=== PATIENT | female | born 1960 | race Caucasian/White ===

== ENCOUNTER 2016-12-15 13:30 | Inpatient (IN) | payer OTHER ==
[~2016-12-15] VITALS: Ht 157.5 cm; Wt 93.3 kg
--- NOTE | ~2016-12-15 | EKG ---
[address] [address] ELECTROCARDIOGRAM REPORT Name: AYLEEN VALENZUELA Gino Room #: 207-P ADM IN M.R.#: [id number] Admission: 12/15/16 Attend Phys: Maged Snyder MD Discharge: Date of : 64 Report #: [id number] THIS REPORT FOR: //name// [facility] ED Test Date: 2016-12-15 Test Time: 13:37:51 Pat Name: AYLEEN VALENZUELA Department: Room: 207 Gender: F Night Time Nanny: KKODSHASHANK : 1960 Requested By: Daisy Dahl Order Number: [id number] MD: Akhil Irizarry Measurements Intervals [place] Rate: 100 P: 46 MA: 128 QRS: -31 QRSD: 91 T: -50 QT: 356 QTc: 460 Interpretive Statements Sinus tachycardia Left axis deviation Nonspecific T abnormalities No previous ECGs available for comparison Electronically Signed On 12-16-2016 8:31:00 CDT by Akhil Irizarry [email or web address] <ELECTRONICALLY SIGNED> By: Akhil Irizarry MD, MERGED WITH [facility] 12/16/16 0831 36 36 Akhil Irizarry MD, FAC /EPI
[~2016-12-15 13:30] MED LIST: ASPIR 8181 MG PO; CELEXA20 MG PO; CLONAZEPAM 0.50.5 M1 PO; CLONAZEPAM 1 MG1 M1 PO; COLACE100 MG PO; COMPLETE MULTI1 EACH PO; IBUPROFEN 800800 M1 PO; INVOKANA100 MG PO; JANUMET 50-1,01 EACH PO; KLOR-CON 1010 MEQ PO; LANTUS100 UNIT/M SUBQ; LASIX 20 MG TAB20 MG PO; LEVOTHYROXIN0.025 MG PO; LIDODERM 5%1 PATC1 TRANSDERM; LIORESAL 10 MG10 MG PO; LIPITOR 20 MG T20 M1 PO; LISINOPRIL10 MG PO; NEXIUM40 MG PO; OLANZAPINE10 MG PO; OXYBUTYNIN 5 MG5 M2 PO; OXYCODONE HCL15 MG PO; PROAIR HFA8.5 GM INH; SENNA8.6 MG PO; TRAZODONE HCL50 MG PO
[2016-12-15 13:46] VITALS: BP 155/96
[2016-12-15 14:05] LABS: ABSOLUTE NEUTROPHILS 2.4 thou/uL (1.4-8.2); EOSINOPHILS 1.3 % (0.0-3.0); HEMOGLOBIN 12.1 gm/dL (12.0-15.0); LYMPHOCYTES 48.3 % (24.0-44.0); MCH 29.5 pg (26.0-34.0); MCHC 33.6 g/dL (28.0-37.0); MCV 87.6 fL (80.0-100.0); MONOCYTES 9.1 % (1.0-8.0); PLATELET COUNT 192 thou/uL (150-400); POLYS 40.3 % (36.0-66.0); RBC 4.11 mil/uL (4.20-5.00); RDW 13.7 % (10.5-14.5); WBC 5.9 thou/uL (4.0-11.0)
[2016-12-15 14:08] LABS: MANUAL DIFF NO
[2016-12-15 14:15] LABS: ANION GAP 9 mmol/L (7-16); BUN 9 mg/dL (7-18); CALCIUM 9.2 mg/dL (8.5-10.1); CHLORIDE 98 mmol/L (98-107); CO2 29 mmol/L (21-32); CREATININE 1.3 mg/dL (0.6-1.0); GLUCOSE 104 mg/dL (74-106); POTASSIUM 3.9 mmol/L (3.5-5.1); SODIUM 136 mmol/L (136-145)
[2016-12-15 14:23] LABS: TROPONIN-I < 0.04 ng/mL (<0.04-0.07)
[2016-12-15 17:20] VITALS: BP 116/68
[2016-12-15 17:45] VITALS: BP 114/71
[2016-12-15 19:40] VITALS: BP 104/73
[2016-12-15 23:14] VITALS: BP 132/83
[2016-12-16 03:48] VITALS: BP 119/74
[2016-12-16 04:22] LABS: HEMATOCRIT 32.1 % (37.0-47.0); HEMOGLOBIN 10.7 gm/dL (12.0-15.0); MCH 29.6 pg (26.0-34.0); MCHC 33.4 g/dL (28.0-37.0); MCV 88.7 fL (80.0-100.0); RBC 3.61 mil/uL (4.20-5.00); RDW 13.9 % (10.5-14.5); WBC 4.7 thou/uL (4.0-11.0)
[2016-12-16 04:25] LABS: ALBUMIN 3.1 g/dL (3.4-5.0); ALKALINE PHOSPHATASE 106 U/L (46-116); ANION GAP 8 mmol/L (7-16); BUN 8 mg/dL (7-18); CALCIUM 8.4 mg/dL (8.5-10.1); CHLORIDE 105 mmol/L (98-107); CO2 28 mmol/L (21-32); CREATININE 1.3 mg/dL (0.6-1.0); GLUCOSE 97 mg/dL (74-106); POTASSIUM 4.2 mmol/L (3.5-5.1); SGOT 25 U/L (15-37); SGPT 19 U/L (30-65); SODIUM 141 mmol/L (136-145); TOTAL BILIRUBIN 0.3 mg/dL (<0.1-1.0); TOTAL PROTEIN 6.3 g/dL (6.4-8.2); TROPONIN-I < 0.04 ng/mL (<0.04-0.07)
[2016-12-16 07:42] VITALS: BP 136/88
[2016-12-16 10:49] VITALS: BP 121/72
[2016-12-16 16:16] VITALS: BP 106/67
[2016-12-16 19:52] VITALS: BP 103/65
[2016-12-16 23:24] VITALS: BP 134/77
[2016-12-17 04:12] VITALS: BP 147/76
[2016-12-17 08:00] VITALS: BP 150/77
[2016-12-17 11:53] VITALS: BP 133/92
[2016-12-17 11:58] VITALS: BP 133/92
[2016-12-17 12:26] VITALS: BP 133/92
== END 2016-12-17 13:08 | disposition home or self-care (01) | DRG 313 ==
LOC: ER 13:30 → 2N 15:07 → EROBS 15:07 → 2N 17:22
PROVIDERS: Emergency Medicine; Internal Medicine
DX: R07.89 Other chest pain (principal); J44.9 Chronic obstructive pulmonary disease, unspecified; F31.9 Bipolar disorder, unspecified; G89.4 Chronic pain syndrome; F41.1 Generalized anxiety disorder; E78.5 Hyperlipidemia, unspecified; M19.90 Unspecified osteoarthritis, unspecified site; I49.5 Sick sinus syndrome; I12.9 Hypertensive chronic kidney disease with stage 1 through stage 4 chronic kidney disease, or unspecified chronic kidney disease; E11.22 Type 2 diabetes mellitus with diabetic chronic kidney disease; N18.3 Chronic kidney disease, stage 3 (moderate); K21.9 Gastro-esophageal reflux disease without esophagitis; Z87.442 Personal history of urinary calculi; Z90.49 Acquired absence of other specified parts of digestive tract; Z79.899 Other long term (current) drug therapy; Z79.4 Long term (current) use of insulin; Z88.6 Allergy status to analgesic agent; Z88.8 Allergy status to other drugs, medicaments and biological substances; Z95.5 Presence of coronary angioplasty implant and graft; Z82.49 Family history of ischemic heart disease and other diseases of the circulatory system; Z95.0 Presence of cardiac pacemaker; Z87.891 Personal history of nicotine dependence
CPT/HCPCS: 10194